=== PATIENT | female | born 1995 | race Two or more races ===

== ENCOUNTER 2024-07-05 12:01 | Inpatient (IN) | payer OTHER ==
[2024-07-05] MEDS ORDERED: ePHEDrine 50 MG/ML SDV IVPUSH PRN (12:55)
[2024-07-05] MEDS ORDERED: Phenylephrine HCl In 0.9% NaCl 1 MG/10 ML Syringe IVPUSH PRN (12:55)
[2024-07-05] MEDS ORDERED: dexmedeTOMIDine HCl 200 MCG/2 ML SDV EPIDUR SCH (13:00)
[2024-07-05] MEDS ORDERED: Ropivacaine HCl/PF 400 MG in Premix Bag 1 BAG EPIDUR SCH (13:00)
[2024-07-05] MEDS ORDERED: Sodium Chloride 0.9% 2.5 ML Syringe FLUSH PRN (14:27)
[2024-07-05] MEDS ORDERED: Sodium Chloride 0.9% 20 ML SDV IV PRN (14:27)
[2024-07-05] MEDS ORDERED: Methylergonovine 0.2 MG/1 ML Amp IM PRN (14:27)
[2024-07-05] MEDS ORDERED: Sodium Chloride 0.9% 10 ML Syringe FLUSH PRN (14:27)
[2024-07-05] MEDS ORDERED: Water For Irrigation,Sterile 1,000 ML Container IRR PRN (14:27)
[2024-07-05] MEDS ORDERED: Lidocaine 1% 50 ML MDV INJECT PRN (14:27)
[2024-07-05] MEDS ORDERED: Carboprost Tromethamine 250 MCG/1 mL Vial IM PRN (14:27)
[2024-07-05] MEDS ORDERED: Ondansetron 4 MG/2 ML SDV IVPUSH PRN (14:27)
[2024-07-05] MEDS ORDERED: Tranexamic Acid IN NACL,ISO-OS 1,000 MG in Premix Bag 1 BAG IV PRN (14:27)
[2024-07-05] MEDS ORDERED: Misoprostol 200 MCG Tab PO PRN (14:27)
[2024-07-05] MEDS ORDERED: Nalbuphine 10 MG/1 ML Vial IVPUSH PRN (14:27)
[2024-07-05] MEDS ORDERED: Oxytocin/0.9 % Sodium Chloride 30 UNIT/500 ML BAG IV SCH (14:30)
[2024-07-05] MEDS ORDERED: Lactated Ringers 1,000 ML IV SCH (14:30)
[2024-07-05] MEDS: Butorphanol 2 MG/ML SDV IVPUSH PRN (15:06)
[2024-07-05 18:08] LABS: HEMATOCRIT 33.4 % (37.0-47.0); HEMOGLOBIN 10.8 g/dL (12.0-16.0); MEAN CORPUSCULAR HEMOGLOBIN 27.3 pg (28.0-32.0); MEAN CORPUSCULAR HGB CONC 32.3 g/dL (32.0-36.0); MEAN CORPUSCULAR VOLUME 84.3 fL (83.0-99.0); MEAN PLATELET VOLUME 12.3 fL (9.4-12.3); PLATELET COUNT,PLT 231 K/uL (150-400); RED BLOOD CELL COUNT 3.96 M/uL (4.10-5.30); WHITE BLOOD CELL COUNT,WBC 10.98 K/uL (3.9-11.3)
[2024-07-05] MEDS: diphenhydrAMINE 50 MG/ML SDV IV PRN (23:55)
[2024-07-06] MEDS: Nalbuphine 10 MG/1 ML Vial IVPUSH PRN (00:37)
[2024-07-06] MEDS: Butorphanol 2 MG/ML SDV IVPUSH PRN (04:29)
[2024-07-06] MEDS ORDERED: fentaNYL 100 MCG/2 ML SDV ONE (08:19)
[2024-07-06] MEDS ORDERED: Morphine PF 10 MG/10 ML SDV ONE (08:19)
[2024-07-06] MEDS ORDERED: Dexamethasone 4 MG/ML 5 ML MDV ONE (09:04)
[2024-07-06] MEDS ORDERED: dexmedeTOMIDine HCl 200 MCG/2 ML SDV ONE (09:04)
[2024-07-06] MEDS ORDERED: Phenylephrine HCl In 0.9% NaCl 1 MG/10 ML Syringe ONE ×2 (09:04→11:22)
[2024-07-06] MEDS ORDERED: Lidocaine 2% 5 ML SDV ONE (09:04)
[2024-07-06] MEDS ORDERED: ePHEDrine 50 MG/ML SDV ONE ×2 (09:04→11:22)
[2024-07-06] MEDS ORDERED: Ondansetron 4 MG/2 ML SDV ONE (09:04)
[2024-07-06] MEDS ORDERED: Tranexamic Acid 1,000 MG/10 ML Vial ONE (09:04)
[2024-07-06] MEDS ORDERED: Oxytocin 10 Units/1 ML SDV ONE (09:04)
[2024-07-06] MEDS ORDERED: Ropivacaine 0.5% 5 MG/ML 30 ML SDV ONE (09:04)
[2024-07-06] MEDS ORDERED: ceFAZolin 2 GM Vial ONE (09:08)
[2024-07-06] MEDS ORDERED: Calcium Chloride 10% 1 GM/10 ML Syringe ONE (09:31)
[2024-07-06] MEDS ORDERED: diphenhydrAMINE 50 MG/ML SDV IVPUSH PRN (10:06)
[2024-07-06] MEDS ORDERED: Acetaminophen/oxyCODONE 325-5 MG Tab PO PRN ×2 (10:06→11:19)
[2024-07-06] MEDS ORDERED: fentaNYL 50 MCG/ML SDV IVPUSH PRN (10:06)
[2024-07-06] MEDS ORDERED: Naloxone 0.4 MG/ML SDV IVPUSH PRN (10:06)
[2024-07-06] MEDS ORDERED: droPERidol 5 MG/2 ML SDV IVPUSH PRN (10:06)
[2024-07-06] MEDS ORDERED: Morphine 2 MG/ML SYRINGE IVPUSH PRN (10:06)
[2024-07-06] MEDS ORDERED: Ondansetron 4 MG/2 ML SDV IVPUSH PRN ×3 (10:06→11:19)
[2024-07-06] MEDS ORDERED: Nalbuphine 10 MG/1 ML Vial IVPUSH PRN (10:06)
[2024-07-06] MEDS ORDERED: fentaNYL 100 MCG/2 ML SDV IVPUSH PRN (10:06)
[2024-07-06] MEDS ORDERED: Metoclopramide 10 MG/2 ML SDV IVPUSH PRN (10:06)
[2024-07-06] MEDS ORDERED: HYDROmorphone 1 MG/ML Syringe IVPUSH PRN (10:06)
[2024-07-06] MEDS ORDERED: Albuterol 0.083% 2.5 MG/3 ML Neb Soln NEB PRN (10:06)
[2024-07-06] MEDS: Lactated Ringers 1,000 ML IV SCH (10:40)
[2024-07-06] MEDS: Phenylephrine HCl In 0.9% NaCl 1 MG/10 ML Syringe IVPUSH PRN (11:06)
[2024-07-06] MEDS ORDERED: Methylergonovine 0.2 MG/1 ML Amp IM PRN (11:19)
[2024-07-06] MEDS ORDERED: Bisacodyl 10 MG Supp RECTAL PRN (11:19)
[2024-07-06] MEDS ORDERED: Lanolin 100% Cream 7 GM Tube TOP PRN (11:19)
[2024-07-06] MEDS ORDERED: Oxytocin 10 Units/1 ML SDV IM PRN (11:19)
[2024-07-06] MEDS ORDERED: Oxytocin/0.9 % Sodium Chloride 30 UNIT/500 ML BAG IV SCH (11:27)
[2024-07-06] MEDS ORDERED: Ketorolac 30 MG/ML SDV IVPUSH SCH (11:30)
[2024-07-06] MEDS: Acetaminophen 1,000 MG in Premix Bag 1 BAG IV SCH (12:50)
[2024-07-06] MEDS: Misoprostol 200 MCG Tab RECTAL PRN (13:26)
[2024-07-06] MEDS: Ketorolac 30 MG/ML SDV IVPUSH SCH (14:12)
[2024-07-06 14:26] LABS: HEMATOCRIT 28.6 % (37.0-47.0)
[2024-07-06] MEDS: Docusate Sodium 100 MG Cap PO SCH (20:37)
[2024-07-07] MEDS: diphenhydrAMINE 50 MG/ML SDV IVPUSH PRN (00:14)
[2024-07-07 05:51] LABS: HEMATOCRIT 21.1 % (37.0-47.0)
[2024-07-07] MEDS: Acetaminophen/oxyCODONE 325-5 MG Tab PO PRN (18:22)
[2024-07-08] MEDS: Ibuprofen 800 MG Tab PO PRN (04:13)
[2024-07-08 07:35] LABS: HEMATOCRIT 23.8 % (37.0-47.0); HEMOGLOBIN 7.7 g/dL (12.0-16.0)
[2024-07-08] MEDS: Sodium Ferric Gluconate Cmplex 125 MG in Sodium Chloride 0.9% 100 ML IV ONE (09:46)
== END 2024-07-08 11:40 | disposition home or self-care (01) | DRG 787 ==
LOC: MW.OB 12:01 → MW.OBCHECK 12:01 → MW.OB 12:02 → MW.OBCHECK 14:28 → OBSVTOIN 07-06 11:19 → MW.OB 07-06 15:08
PROVIDERS: ADMIT Obstetrics & Gynecology; ATTEND Obstetrics & Gynecology
PROC: 30233N1 Transfusion of Nonautologous Red Blood Cells into Peripheral Vein, Percutaneous Approach (ICD-10-PCS; 2024-07-06)
PROC: 10D00Z1 Extraction of Products of Conception, Low, Open Approach (ICD-10-PCS; principal; 2024-07-06 09:00)
DX: O36.63X0 Maternal care for excessive fetal growth, third trimester, not applicable or unspecified (principal); D62 Acute posthemorrhagic anemia; O72.1 Other immediate postpartum hemorrhage; O99.43 Diseases of the circulatory system complicating the puerperium; Z3A.39 39 weeks gestation of pregnancy; Z37.0 Single live birth; O62.0 Primary inadequate contractions; O99.214 Obesity complicating childbirth; O90.81 Anemia of the puerperium; I95.81 Postprocedural hypotension
CPT/HCPCS: 01961; 36415; 36430; 51702; 59025; 59514; 64488; 85014; 85018; 85027; 86592; 86850; 86900; 86901; 86920; A9270-GY; J0131; J0595; J0690; J1100; J1200; J1885; J2274; J2300; J2371; J2405; J2590; J2795; J2916; J3010; J3490; J7120; P9016